=== PATIENT | female | born 1980 | race Caucasian/White ===

== ENCOUNTER 2020-02-12 10:24 | Emergency (ER) | payer BC, OTHER ==
[~2020-02-12 10:24] MED LIST: IBUPROFEN800 MG PO; ONDANSETRON ODT4 MG PO; PYRIDIUM200 MG PO
[2020-02-12 12:12] LABS: HEMOGLOBIN 13.6 gm/dl (12.3-15.3); RED BLOOD COUNT 4.62 M/UL (4.00-5.10); WHITE BLOOD COUNT 13.5 K/UL (4.5-11.0)
[2020-02-12 12:47] LABS: BUN/CREATININE RATIO 15 (0-10)
[2020-02-12] MEDS ORDERED: VENTOLIN HFA 66.7 GM INH (13:18)
[2020-02-12] MEDS ORDERED: DECADRON6 MG PO (13:18)
== END 2020-02-12 13:35 | disposition home or self-care (01) ==
LOC: ER1 10:24
PROVIDERS: Emergency Medicine
DX: U07.1 COVID-19 (principal); R07.89 Other chest pain; Z88.1 Allergy status to other antibiotic agents; Z88.2 Allergy status to sulfonamides; Z87.01 Personal history of pneumonia (recurrent)
CPT/HCPCS: 71045; 80053; 82550; 82553; 83874; 84484; 84703; 85025; 85379; 93005; 99285

== ENCOUNTER 2020-06-06 09:32 | Emergency (ER) | payer BC, OTHER ==
[~2020-06-06 09:32] MED LIST changes: +DECADRON6 MG PO; +VENTOLIN HFA 66.7 GM INH
[2020-06-06 11:39] LABS: HEMOGLOBIN 15.6 gm/dl (12.3-15.3); RED BLOOD COUNT 5.1 M/UL (4.00-5.10); WHITE BLOOD COUNT 10.1 K/UL (4.5-11.0)
[2020-06-06 12:01] LABS: BUN/CREATININE RATIO 9 (0-10)
[2020-06-06] MEDS ORDERED: PYRIDIUM200 MG PO (13:53)
[2020-06-06] MEDS ORDERED: OMNICEF 300 MG300 MG PO (13:53)
== END 2020-06-06 14:06 | disposition home or self-care (01) ==
LOC: ER1 09:32
PROVIDERS: Physician Assistant
DX: N39.0 Urinary tract infection, site not specified (principal); Z88.1 Allergy status to other antibiotic agents; Z88.2 Allergy status to sulfonamides
CPT/HCPCS: 80053; 81001; 84703; 85025; 87086; 96374; 96375; 99284; J0696; J1885; J2405

== ENCOUNTER → 2020-06-12 | Outpatient (CLI) | payer BC, OTHER ==
[~2020-06-12] MED LIST changes: +OMNICEF 300 MG300 MG PO
== END ==
LOC: MRI 06-11 14:45
DX: M54.5 Low back pain (principal); M53.3 Sacrococcygeal disorders, not elsewhere classified; N85.4 Malposition of uterus
CPT/HCPCS: 72148; 72195

== ENCOUNTER → 2020-10-01 | Outpatient (CLI) | payer BC | LOC: KOH-I 16:00 | DX: R51.9 Headache, unspecified (principal) | CPT/HCPCS: 70450 ==

== ENCOUNTER → 2020-10-08 | Outpatient (CLI) | payer BC | LOC: KOH-I 13:39 | DX: R10.9 Unspecified abdominal pain (principal) | CPT/HCPCS: 74018 ==